=== PATIENT | male | born 1965 | race Caucasian/White ===

== ENCOUNTER → 2017-02-20 | Outpatient (CLI) | payer BC ==
[~2017-02-20] MED LIST: AMLO-114 PO; CLC100X PO; HYDR12.56 PO; OXYC-57 PO; POLY335025 PO; SENN-91 PO; SILD100T PO
[2017-02-20 16:56] LABS: BASO % 0.5 %; BASO ABS # 0.04 K/uL (0-0.2); COMPLETE YES; EOS % 1.8 %; HEMATOCRIT 42.3 % (42-52); IG% 0.3 %; LYMPH % 24.1 %; LYMPH ABS # 2.13 K/uL (1.2-3.4); MEAN CELL VOLUME 81.8 fL (80-100); MEAN CORPUSCULAR HGB CONC 35.5 g/dl (32-36); MEAN PLATELET VOLUME 11.5 fL (7.4-10.4); MONO % 7.8 %; NEUT % 65.5 %; PLATELET COUNT 367 K/uL (130-400); RED BLOOD COUNT 5.17 M/uL (4.7-6.1); WHITE BLOOD COUNT 8.83 K/uL (4.8-10.8)
[2017-02-20 17:14] LABS: ALT/SGPT 39 U/L (12-78); AST/SGOT 14 U/L (15-37); BLOOD UREA NITROGEN 18 mg/dl (7-18); BUN/CREATININE RATIO 16.1 (10-20); CALCIUM 8.8 mg/dl (8.5-10.1); CARBON DIOXIDE 28 mmol/L (21-32); CHLORIDE 106 mmol/L (98-107); GLUCOSE 92 mg/dl (70-99); POTASSIUM 3.6 mmol/L (3.5-5.1); SODIUM 142 mmol/L (136-145)
[2017-02-20 17:24] LABS: ALB/GLOB RATIO 1.3 (0.9-2); ALKALINE PHOSPHATASE 69 U/L (45-117)
[2017-02-20 18:17] LABS: LYME DISEASE AB IGG NEG (NEG); LYME DISEASE AB IGM NEG (NEG)
[2017-02-20 23:54] LABS: RAPID PLASMA REAGIN NONREACTIVE (NONREACT)
[2017-02-25 09:34] LABS: ANA TITER 1:40 TITER (<1:40)
== END | disposition home or self-care (01) ==
LOC: C.LABBC 15:22
PROVIDERS: ATTEND Psychiatry & Neurology Neurology
DX: R42 Dizziness and giddiness (principal); R51 Headache; R41.89 Other symptoms and signs involving cognitive functions and awareness

== ENCOUNTER → 2017-05-02 | Outpatient (CLI) | payer BC ==
--- NOTE | 2017-05-02 11:12 | DIAGNOSTIC IMAGING REPORT ---
Brain MRA HISTORY: R42 [id number] Worsening [id number] Cognitive impairmentM TECHNIQUE: 3-D [id number] MRA of the brain was performed without contrast. COMPARISON STUDY: None. FINDINGS: Visualized intracranial internal carotid arteries, distal vertebral arteries, and basilar artery are widely patent. There is no significant stenosis, occlusion, or aneurysm seen within the bilateral ACAs, MCAs, or asphalt plant laborer. IMPRESSION: No significant stenosis, occlusion, or aneurysm within the [place]. Electronically signed by: Samir Grijalva M.D. 05/02/2017 11:11 AM Dictated Date/Time: 05/02/2017 11:08 AM
== END | disposition home or self-care (01) ==
LOC: C.MRI 09:11
PROVIDERS: ATTEND Physician Assistant
DX: R42 Dizziness and giddiness (principal); R51 Headache; R41.89 Other symptoms and signs involving cognitive functions and awareness